=== PATIENT | male | born 1950 | race Two or more races ===

== ENCOUNTER 2025-04-30 10:46 | Inpatient (IN) | payer OTHER ==
[~2025-04-30] VITALS: Ht 170.2 cm; Wt 90.7 kg
[2025-04-30] MEDS ORDERED: LODOSYN25 MG PO (11:17)
[2025-04-30] MEDS ORDERED: ELIQUIS5 MG PO (11:17)
[2025-04-30] MEDS ORDERED: TAMS0.4C PO (11:17)
[2025-04-30] MEDS ORDERED: PREVACID30 MG (11:18)
[2025-04-30] MEDS ORDERED: CRESTOR40 MG PO (11:18)
--- NOTE | 2025-04-30 11:20 | NUR ---
PTE ALERTA Y ORIENTADA X3 LLEGA A ER EN AMBULANCIA EN COMPANIA DE FAMILIAR. AL MOMENTO PTE REFIERE DOLOR DE PECHO DESDE LA MANANA DE HOY. SE REALIZA EKG Y SE PRESENTA A DR. MENDOZA QUIEN ORDENA QUE SE UBIQUE PTE EN CARMELO SIN MONITOR CARDIACO.
[2025-04-30 13:34] LABS: BASO % 0.2 % (0.1-1.2); EOS # 0.00 (0.04-0.54); EOS % 0.0 % (0.7-7.0); LYMPH # 0.45 (1.18-3.74); LYMPH % 2.8 % (19.3-53.1); MEAN PLATELET VOLUME 9.80 fl (9.4-12.4); MONO # 1.10 (0.24-0.82); MONO % 6.7 % (4.7-12.5); NEUT # 14.65 (1.56-6.13); NEUT % 89.7 % (34.0-71.1); RED CELL DISTRIBUTION WIDTH 13.4 % (11.6-14.4)
--- NOTE | 2025-04-30 14:05 | NUR ---
SE REALIZA LAB Y SE ORIENTAPTE QUIEN REFIERE ENTENDER Y ACEPTAR.
[2025-04-30 14:08] LABS: ALT/SGPT 11.0 U/L (12-78); AST/SGOT 23.0 U/L (15-37); BILIRUBIN TOTAL 1.92 mg/dL (0.3-1.2); BUN CREA RATIO 17.0 (7.0-25.0); CREATININE SERUM 1.63 mg/dL (0.70-1.30); GFR 41.45; GLOBULINA 3.0 G/DL (2.4-3.5); GLUCOSE FASTING 89.0 mg/dL (65-100); OSMOLALITY SERUM 288.0 MOSM/KG (275-295)
[2025-04-30 16:28] LABS: URINE APPEARANCE Cloudy; URINE BILIRRUBIN Negative (NEGATIVE); URINE BLOOD Large; URINE COLOR Yellow; URINE GLUCOSE Negative (NEGATIVE); URINE KETONE Trace (NEGATIVE); URINE LEUKOCYTE Moderate; URINE NITRATE Negative; URINE UROBILINOGEN 1.0 E.U./dl
[2025-04-30 16:32] LABS: URINE CAST 2.78 uL (0.0-1.40); URINE EPITHELIAL CELLS 3.8 uL (0.0-38.8); URINE RBC 28.8 uL (0.0-20.8); URINE WBC 1158.7 uL (0.0-23.2)
[2025-04-30 16:57] LABS: TYPE CELLS SQUAMOUS; URINE BACTERIA > 9821.5 uL (0.0-1933); URINE MUCUS SCANT; URINE PROTEIN 100 (NEGATIVE)
[2025-04-30] MEDS ORDERED: CEFTRIAXONE SODIUM 2,000 MG VIAL IV ONE (18:00)
[2025-04-30] MEDS ORDERED: NITROGLYCERIN 250 ML IV SCH (19:00)
[2025-04-30] MEDS ORDERED: FAMOTIDINE/PF 20 MG in 0.9 % SODIUM CHLORIDE 8 ML IV PUSH SCH (20:29)
[2025-04-30] MEDS ORDERED: ROSUVASTATIN CALCIUM 10 MG TABLET PO SCH (20:29)
[2025-04-30] MEDS ORDERED: TAMSULOSIN HCL 0.4 MG CAP PO SCH (20:30)
[2025-04-30] MEDS ORDERED: ACETAMINOPHEN 500 MG GEL..CAP PO PRN (20:30)
[2025-04-30] MEDS ORDERED: 0.9 % SODIUM CHLORIDE 1,000 ML IV SCH (20:30)
[2025-04-30] MEDS ORDERED: METOPROLOL SUCCINATE 25 MG TAB.SR.24H PO SCH (20:30)
[2025-04-30] MEDS ORDERED: ASPIRIN 81 MG TAB.CHEW PO SCH (20:33)
[2025-04-30] MEDS ORDERED: 0.9 % SODIUM CHLORIDE 1,000 ML IV ONE (20:45)
[2025-04-30] MEDS ORDERED: CARBIDOPA/LEVODOPA 25/100 UDTAB PO SCH (21:00)
[2025-04-30 21:59] LABS: INR 1.23
[2025-04-30 22:07] VITALS: BP 112/61; O2SAT 95
[2025-04-30 22:08] LABS: ALT/SGPT 20 U/L (12-78); AST/SGOT 22 U/L (15-37); LDH 169 U/L (87-241); PHOSPHOKINASE CREATININE 391 U/L (39-308)
[2025-04-30] MEDS ORDERED: ENOXAPARIN SODIUM 80 MG/0.8 ML SYRINGE SUBCUTANEO SCH (23:49)
[2025-05-01] VITALS (12 sets, daily range): BP systolic 88–118; BP diastolic 64–76; O2SAT 96–99
[2025-05-01] MEDS ORDERED: CEFTRIAXONE SODIUM 2,000 MG in 0.9 % SODIUM CHLORIDE 100 ML IV SCH (09:00)
[2025-05-01] MEDS ORDERED: ROSUVASTATIN CALCIUM 20 MG TABLET PO SCH (09:00)
[2025-05-01 10:56] LABS: BASO % 0.2 % (0.1-1.2); EOS # 0.01 (0.04-0.54); EOS % 0.1 % (0.7-7.0); LYMPH # 1.01 (1.18-3.74); LYMPH % 5.4 % (19.3-53.1); MEAN PLATELET VOLUME 9.90 fl (9.4-12.4); MONO # 0.94 (0.24-0.82); MONO % 5.0 % (4.7-12.5); NEUT # 16.42 (1.56-6.13); NEUT % 88.1 % (34.0-71.1); RED CELL DISTRIBUTION WIDTH 13.9 % (11.6-14.4)
[2025-05-01 11:35] LABS: BUN CREA RATIO 22.0 (7.0-25.0); CREATININE SERUM 1.56 mg/dL (0.70-1.30); GFR 43.6; GLUCOSE FASTING 94.0 mg/dL (65-100); OSMOLALITY SERUM 289.0 MOSM/KG (275-295)
[2025-05-02 00:18] VITALS: BP 105/67; O2SAT 99
[2025-05-02 06:05] VITALS: BP 113/77; O2SAT 98
[2025-05-02 06:57] LABS: ALT/SGPT 16.0 U/L (12-78); AST/SGOT 49.0 U/L (15-37); BILIRUBIN TOTAL 0.89 mg/dL (0.3-1.2); BUN CREA RATIO 23.0 (7.0-25.0); CREATININE SERUM 1.43 mg/dL (0.70-1.30); GFR 48.21; GLOBULINA 3.3 G/DL (2.4-3.5); GLUCOSE FASTING 77.0 mg/dL (65-100); OSMOLALITY SERUM 285.0 MOSM/KG (275-295)
[2025-05-02 07:36] VITALS: BP 113/77; O2SAT 97
[2025-05-02 15:41] VITALS: BP 111/73; O2SAT 98
[2025-05-02 18:53] LABS: BUN CREA RATIO 23.0 (7.0-25.0); CREATININE SERUM 1.35 mg/dL (0.70-1.30); GFR 51.52; GLUCOSE FASTING 82.0 mg/dL (65-100); OSMOLALITY SERUM 281.0 MOSM/KG (275-295)
[2025-05-02 21:00] VITALS: BP 127/76; O2SAT 97
[2025-05-02 23:47] VITALS: BP 119/76; O2SAT 97
[2025-05-03 05:00] VITALS: BP 118/74; O2SAT 95
[2025-05-03 08:58] VITALS: BP 108/72; O2SAT 95
[2025-05-03 12:04] LABS: BUN CREA RATIO 20.0 (7.0-25.0); CREATININE SERUM 1.37 mg/dL (0.70-1.30); GFR 50.65; GLUCOSE FASTING 88.0 mg/dL (65-100); OSMOLALITY SERUM 282.0 MOSM/KG (275-295)
[2025-05-03 15:48] LABS: BASO % 0.1 % (0.1-1.2); EOS # 0.01 (0.04-0.54); EOS % 0.1 % (0.7-7.0); LYMPH # 0.65 (1.18-3.74); LYMPH % 9.3 % (19.3-53.1); MEAN PLATELET VOLUME 10.30 fl (9.4-12.4); MONO # 0.62 (0.24-0.82); MONO % 8.8 % (4.7-12.5); NEUT # 5.70 (1.56-6.13); NEUT % 81.3 % (34.0-71.1); RED CELL DISTRIBUTION WIDTH 13.5 % (11.6-14.4)
[2025-05-03 16:23] VITALS: BP 90/58
[2025-05-03] MEDS ORDERED: TRIAMCINOLONE ACETONIDE 5 GM TUBE TOP STA (18:21)
[2025-05-03] MEDS ORDERED: TRIAMCINOLONE ACETONIDE 5 GM TUBE TOP SCH (18:21)
[2025-05-03] MEDS ORDERED: BUDESONIDE 0.5 MG/2 ML AMPUL.NEB IH STA (18:22)
[2025-05-03] MEDS ORDERED: ALBUTEROL SULFATE 3 ML/2.5 MG AMPUL.NEB IH SCH (18:22)
[2025-05-03] MEDS ORDERED: BUDESONIDE 0.5 MG/2 ML AMPUL.NEB IH SCH (18:22)
[2025-05-03] MEDS ORDERED: ALBUTEROL SULFATE 3 ML/2.5 MG AMPUL.NEB IH STA (18:22)
[2025-05-04 02:25] VITALS: BP 129/87; O2SAT 94
[2025-05-04 08:32] VITALS: BP 71/50; O2SAT 97
[2025-05-04] MEDS ORDERED: METOPROLOL SUCCINATE 25 MG TAB.SR.24H PO SCH (09:00)
[2025-05-04 14:42] VITALS: BP 99/65
[2025-05-04 16:46] VITALS: BP 127/82
[2025-05-05 02:27] VITALS: BP 125/66; O2SAT 93
[2025-05-05 08:16] VITALS: BP 92/64; O2SAT 95
[2025-05-05] MEDS ORDERED: IPRATROPIUM BROMIDE 0.5 MG/2.5 ML AMPUL.NEB IH SCH (13:00)
[2025-05-05 13:41] LABS: BASO % 0.2 % (0.1-1.2); EOS # 0.01 (0.04-0.54); EOS % 0.2 % (0.7-7.0); LYMPH # 0.46 (1.18-3.74); LYMPH % 8.5 % (19.3-53.1); MEAN PLATELET VOLUME 9.70 fl (9.4-12.4); MONO # 0.76 (0.24-0.82); MONO % 14.0 % (4.7-12.5); NEUT # 4.17 (1.56-6.13); NEUT % 76.7 % (34.0-71.1); RED CELL DISTRIBUTION WIDTH 14.0 % (11.6-14.4)
[2025-05-05 15:44] LABS: ALT/SGPT 52.0 U/L (12-78); AST/SGOT 207.0 U/L (15-37); BILIRUBIN TOTAL 1.26 mg/dL (0.3-1.2); BUN CREA RATIO 13.0 (7.0-25.0); CREATININE SERUM 1.49 mg/dL (0.70-1.30); GFR 45.98; GLOBULINA 2.8 G/DL (2.4-3.5); GLUCOSE FASTING 114.0 mg/dL (65-100); OSMOLALITY SERUM 287.0 MOSM/KG (275-295)
[2025-05-05 17:06] VITALS: BP 115/69
[2025-05-06 02:52] VITALS: BP 133/82; O2SAT 96
[2025-05-06 09:55] VITALS: BP 139/77; O2SAT 99
== END 2025-05-06 12:29 | disposition home or self-care (01) | DRG 689 ==
LOC: ER 10:46 → MEDI 20:52 → SEC-K 20:52 → ICU-2 20:52 → SEC-K 05-03 00:09 → MEDI 05-03 02:56
PROVIDERS: General Practice; Internal Medicine; Student in an Organized Health Care Education/Training Program; ADMIT Internal Medicine; ATTEND Internal Medicine
PROC: B24BZZZ Ultrasonography of Heart with Aorta (ICD-10-PCS; 2025-05-01)
PROC: 4A12X4Z Monitoring of Cardiac Electrical Activity, External Approach (ICD-10-PCS; principal; 2025-05-03)
PROC: 4A12X4Z Monitoring of Cardiac Electrical Activity, External Approach (ICD-10-PCS; 2025-05-03)
PROC: 3E0F7GC Introduction of Other Therapeutic Substance into Respiratory Tract, Via Natural or Artificial Opening (ICD-10-PCS; 2025-05-03)
DX: N39.0 Urinary tract infection, site not specified (principal); A41.9 Sepsis, unspecified organism; N17.9 Acute kidney failure, unspecified; I13.0 Hypertensive heart and chronic kidney disease with heart failure and stage 1 through stage 4 chronic kidney disease, or unspecified chronic kidney disease; E78.5 Hyperlipidemia, unspecified; I48.0 Paroxysmal atrial fibrillation; I48.91 Unspecified atrial fibrillation; G20.A1 Parkinson's disease without dyskinesia, without mention of fluctuations; I25.10 Atherosclerotic heart disease of native coronary artery without angina pectoris; Z98.61 Coronary angioplasty status; J44.9 Chronic obstructive pulmonary disease, unspecified; B96.20 Unspecified Escherichia coli [E. coli] as the cause of diseases classified elsewhere; N18.9 Chronic kidney disease, unspecified; Z79.01 Long term (current) use of anticoagulants